=== PATIENT | male | born 1990 | race Caucasian/White ===

== ENCOUNTER → 2017-11-17 | Outpatient (CLI) | payer OTHER ==
--- NOTE | 2017-11-17 08:57 | Diagnostic Imaging Report ---
PROCEDURE:X-RAY RIGHT FOREARM, TWO VIEWS COMPARISON:None. INDICATIONS:RIGHT WRIST AND FOREARM TRAUMA FINDINGS: Minimally displaced fracture of the ulnar styloid. The radius is normal. There are no dislocations, lytic or blastic lesions. The bones are well-mineralized. The soft-tissues are unremarkable. CONCLUSION: Minimally displaced fracture of the ulnar styloid. No other fracture is identified. Dictated by: Brayden Vilchis M.D. on 11/17/2017 at 8:59 Electronically approved by: Brayden Vilchis M.D. on 11/17/2017 at 8:59
== END ==
LOC: RAD 07:58
PROVIDERS: ATTEND Internal Medicine
DX: M79.631 Pain in right forearm (principal)